=== PATIENT | male | born 1955 | race Caucasian/White ===

== ENCOUNTER 2018-11-27 08:33 | Day surgery (SDC) | payer MEDICARE ==
[2018-11-27] MEDS ORDERED: PROPOFOL 10 MG/ML VIAL IV ONE (08:34)
[2018-11-27] MEDS ORDERED: LIDOCAINE 2% MDV (20MG/ML) 20ML VIAL IV ONE (08:34)
--- NOTE | 2018-11-28 08:30 | Operative Note ---
DATE OF SURGERY: 11/27/2018 OPERATION: COLONOSCOPY with cold forceps polypectomy x2. PREOPERATIVE DIAGNOSIS: Initial exam, average risk. POSTOPERATIVE DIAGNOSIS: Two diminutive rectosigmoid colon polyps. PREPARATION QUALITY: Excellent. ESTIMATED BLOOD LOSS: Minimum. SPECIMENS: Rectosigmoid colon polyps x2. PROCEDURE: After informed consent was obtained from the patient, he was placed in the left lateral decubitus position in the endoscopy suite, sedated and monitored by the department of anesthesia. Digital rectal exam was unremarkable. A well-lubricated TUH601 colonoscope was inserted into the rectum and advanced to the cecum. The cecum, cecal bulb, ileocecal valve, appendiceal orifice, ascending colon, transverse colon, descending colon, and sigmoid colon were free of inflammatory changes, mass lesions, or polyp. There were 2 diminutive rectosigmoid colon polyps each removed with a cold forceps. Minimal bleeding was noted. Forward and J-turn views of the rectum and anorectum were otherwise unremarkable. The endoscope was straightened, the rectal ampulla deflated, and the endoscope was removed. RECOMMENDATIONS: The patient should continue his current medical program. Repeat colonoscopy in 5-10 years would be suggested based on tissue histology. As always, thank you for allowing me to participate in the healthcare of your patients. CC: CHIDI CHI D.O. DEANGELO
== END 2018-11-27 09:30 | disposition home or self-care (01) ==
LOC: HOP 08:33
PROVIDERS: ATTEND Internal Medicine Gastroenterology
DX: Z12.11 Encounter for screening for malignant neoplasm of colon (principal); K63.5 Polyp of colon; E78.00 Pure hypercholesterolemia, unspecified